=== PATIENT | male | born 1980 | race African-American/Black ===

== ENCOUNTER 2021-01-19 07:43 | Emergency (ER) | payer SELFPAY ==
[~2021-01-19] VITALS: Ht 175.3 cm; Wt 63.6 kg
[2021-01-19 07:48] VITALS: Ht 175.3 cm; Wt 63.6 kg
[2021-01-19 08:22] LABS: BILIRUBIN NEGATIVE (NEGATIVE); KETONE TRACE mg/dL (< 1+); NITRITE NEGATIVE (NEGATIVE); SQUAMOUS EPITHELIAL <1 HPF (0-4); UROBILINOGEN 2 mg/dL (< 2); WHITE CELLS - URINE 1 HPF (0-1)
[2021-01-19] MEDS ORDERED: CYCLOBENZAPRINE10 MG PO ×2 (09:39→10:00)
[2021-01-19] MEDS ORDERED: ACETAMINOPHEN500 M1 PO ×2 (09:39→10:00)
[2021-01-19] MEDS ORDERED: IBUPROFEN800 MG PO ×2 (09:39→10:00)
[2021-01-19] MEDS ORDERED: LISINOPRIL10 MG PO ×2 (09:39→10:00)
[2021-01-19 10:15] VITALS: BP 146/85
== END 2021-01-19 10:17 | disposition home or self-care (01) ==
LOC: D.ER 07:43
PROVIDERS: Family Medicine
DX: M54.5 Low back pain (principal); M79.18 Myalgia, other site; R03.0 Elevated blood-pressure reading, without diagnosis of hypertension